=== PATIENT | female | born 1950 | race Caucasian/White ===

== ENCOUNTER → 2017-05-12 | Outpatient (CLI) | payer MEDICARE | END | disposition home or self-care (01) | LOC: CFH 10:46 | PROVIDERS: ATTEND Nurse Practitioner | DX: Z12.31 Encounter for screening mammogram for malignant neoplasm of breast (principal); M81.0 Age-related osteoporosis without current pathological fracture; N95.1 Menopausal and female climacteric states; Z80.3 Family history of malignant neoplasm of breast | CPT/HCPCS: 77080; G0202 ==

== ENCOUNTER → 2018-07-14 | Outpatient (CLI) | payer MEDICARE | END | disposition home or self-care (01) | LOC: CFH 14:09 | PROVIDERS: ATTEND Nurse Practitioner | DX: Z12.31 Encounter for screening mammogram for malignant neoplasm of breast (principal); Z80.3 Family history of malignant neoplasm of breast | CPT/HCPCS: 77067 ==

== ENCOUNTER → 2019-09-30 | Outpatient (CLI) | payer MEDICARE | END | disposition home or self-care (01) | LOC: CFH 09:49 | PROVIDERS: ATTEND Nurse Practitioner | DX: Z12.31 Encounter for screening mammogram for malignant neoplasm of breast (principal); N64.89 Other specified disorders of breast | CPT/HCPCS: 77063; 77067 ==

== ENCOUNTER 2020-04-26 14:30 | Outpatient (CLI) | payer MEDICARE ==
[2020-04-26] MEDS ORDERED: ATOR20TA37 PO (14:59)
[2020-04-26] MEDS ORDERED: LEVO75TA PO (14:59)
[2020-04-26] MEDS ORDERED: MELO15TA24 PO (14:59)
[2020-04-26] MEDS ORDERED: BUTA-177 PO (14:59)
[2020-04-26] MEDS ORDERED: FAMO-79 PO (15:18)
== END 2020-04-26 23:59 | disposition home or self-care (01) ==
LOC: STAR 14:30
PROVIDERS: ATTEND Obstetrics & Gynecology Female Pelvic Medicine and Reconstructive Surgery
DX: Z01.818 Encounter for other preprocedural examination (principal); Z11.59 Encounter for screening for other viral diseases; N93.9 Abnormal uterine and vaginal bleeding, unspecified; N81.10 Cystocele, unspecified; N81.6 Rectocele
CPT/HCPCS: 36415; 87635; 93005

== ENCOUNTER 2020-04-30 06:34 | Day surgery (SDC) | payer MEDICARE ==
[2020-04-26 14:59] VITALS: BP 104/72
[~2020-04-30] VITALS: Ht 165.1 cm; Wt 66.9 kg
[~2020-04-30 06:34] MED LIST: ATOR20TA37 PO; BUPIVACAINE/PF 0.25% ONE; BUTA-177 PO; EPINEPHRINE 1 MG/ML, 1ML ONE; FAMO-79 PO; GENTAMICIN 80 MG/2 ML ONE; LEVO75TA PO; MELO15TA24 PO; VANCOMYCIN 500 MG ONE
[2020-04-30] MEDS ORDERED: LACTATED RINGERS 1,000 ML IV SCH (07:00)
[2020-04-30] MEDS ORDERED: CHLORHEXIDINE 15 ML UDC MM ONE (07:00)
[2020-04-30] MEDS ORDERED: NITR100C6 PO (07:09)
[2020-04-30] MEDS ORDERED: PHENAZOPYRIDINE PO (07:09)
[2020-04-30] MEDS ORDERED: KETOROLAC 30 MG/1 ML IV PRN (07:30)
[2020-04-30] MEDS ORDERED: LABETALOL 5MG/ML, 20ML IV PRN (07:30)
[2020-04-30] MEDS ORDERED: ONDANSETRON 2MG/ML, 2ML IVPush PRN (07:30)
[2020-04-30] MEDS ORDERED: METOCLOPRAMIDE 5 MG/ML, 2ML IVPush PRN (07:30)
[2020-04-30] MEDS ORDERED: LORazepam 2 MG/ML, 1ML IVPush PRN (07:30)
[2020-04-30] MEDS ORDERED: HALOPERIDOL 5 MG/ML IV PRN (07:30)
[2020-04-30] MEDS ORDERED: DIPHENHYDRAMINE 50 MG/ML, 1ML IVPush PRN (07:30)
[2020-04-30] MEDS ORDERED: ACETAMINOPHEN 325 MG TABLET PO PRN (07:30)
[2020-04-30] MEDS ORDERED: EPHEDRINE 50 MG/ML, 1ML IM PRN (07:30)
[2020-04-30] MEDS ORDERED: HYDROcodone/APAP 7.5-325MG/15ML UDC PO PRN (07:30)
[2020-04-30] MEDS ORDERED: METHOCARBAMOL 1,000 MG in DEXTROSE 5% 100 ML IV PRN (07:30)
[2020-04-30] MEDS ORDERED: OXYcodone 5 MG/5 ML ORAL.SOL UDC PO PRN (07:30)
[2020-04-30] MEDS ORDERED: MEPERIDINE/PF 25MG/0.5ML IVPush PRN (07:30)
[2020-04-30] MEDS ORDERED: ALBUTEROL/IPRATROPIUM 2.5MG/0.5MG, 3 ML NPPB PRN (07:30)
[2020-04-30] MEDS ORDERED: FENTANYL PF 100 MCG/2ML IV PRN (07:30)
[2020-04-30] MEDS ORDERED: EPHEDRINE 50 MG/ML, 1ML IVPush PRN (07:30)
[2020-04-30] MEDS ORDERED: MIDAZOLAM 1 MG/ML, 2ML IV PRN (07:30)
[2020-04-30] MEDS ORDERED: DIAZEPAM 5 MG/ML, 2ML IVPush PRN (07:30)
[2020-04-30] MEDS ORDERED: HYDROmorphone 1 MG/ML, 1ML INJ IVPush PRN (07:30)
[2020-04-30] MEDS ORDERED: FENTANYL PF 100 MCG/2ML ONE ×2 (07:57→10:02)
[2020-04-30] MEDS ORDERED: PROPOFOL 10 MG/ML, 20ML ONE (07:57)
[2020-04-30] MEDS ORDERED: MIDAZOLAM 1 MG/ML, 2ML ONE (07:57)
[2020-04-30] MEDS ORDERED: DEXAMETHASONE 4 MG/ML, 1ML ONE (07:57)
[2020-04-30] MEDS ORDERED: GLYCOPYRROLATE 0.2MG/1ML, 5ML ONE (07:57)
[2020-04-30] MEDS ORDERED: LIDOCAINE-MPF 2% ,5ML ONE (07:57)
[2020-04-30] MEDS ORDERED: ROCURONIUM 10MG/ML,5ML ONE (07:57)
[2020-04-30] MEDS ORDERED: CEFAZOLIN 1,000 MG ONE (09:06)
[2020-04-30] MEDS ORDERED: FUROSEMIDE 20 MG/2 ML ONE (09:29)
[2020-04-30] MEDS ORDERED: FLUORESCEIN SODIUM 500 MG/5 ML ONE (09:52)
[2020-04-30] MEDS ORDERED: MEPERIDINE/PF 25MG/ML,1ML ONE (10:02)
[2020-04-30] MEDS ORDERED: OXYcodone 5 MG/5 ML ORAL.SOL UDC ONE (10:03)
[2020-04-30] MEDS ORDERED: FAMOTIDINE 10 MG TAB PO ONE (11:30)
[2020-04-30] MEDS ORDERED: FAMOTIDINE 20 MG TABLET ONE (11:30)
[2020-04-30] MEDS ORDERED: HYDROcodone/APAP 5/325 TABLET ONE (11:48)
[2020-04-30] MEDS ORDERED: HYDROcodone/APAP 5/325 TABLET PO ONE (12:00)
== END 2020-04-30 13:30 | disposition home or self-care (01) ==
LOC: OUT 06:34
PROVIDERS: ATTEND Obstetrics & Gynecology Female Pelvic Medicine and Reconstructive Surgery
DX: N81.89 Other female genital prolapse (principal); N39.46 Mixed incontinence; N81.11 Cystocele, midline; N81.5 Vaginal enterocele; N81.6 Rectocele; R10.2 Pelvic and perineal pain; G47.33 Obstructive sleep apnea (adult) (pediatric); G43.909 Migraine, unspecified, not intractable, without status migrainosus; E03.9 Hypothyroidism, unspecified; M19.90 Unspecified osteoarthritis, unspecified site; G47.00 Insomnia, unspecified; Z79.890 Hormone replacement therapy; Z79.899 Other long term (current) drug therapy; Z90.710 Acquired absence of both cervix and uterus; Z98.890 Other specified postprocedural states
CPT/HCPCS: 57265; 57282; 57288; C1771; J0171; J0690; J1100; J1580; J1885; J2250; J2704; J3370; J3490; J3010; J1940

== ENCOUNTER → 2020-07-03 | Outpatient (CLI) | payer MEDICARE ==
[~2020-07-03] MED LIST changes: -BUPIVACAINE/PF 0.25% ONE; -EPINEPHRINE 1 MG/ML, 1ML ONE; -GENTAMICIN 80 MG/2 ML ONE; +NITR100C6 PO; +PHENAZOPYRIDINE PO; -VANCOMYCIN 500 MG ONE
== END | disposition home or self-care (01) ==
LOC: RAD 14:30
PROVIDERS: ATTEND Nurse Practitioner
DX: K44.9 Diaphragmatic hernia without obstruction or gangrene (principal); K21.9 Gastro-esophageal reflux disease without esophagitis; I51.7 Cardiomegaly
CPT/HCPCS: 74220

== ENCOUNTER 2021-04-01 16:48 | Emergency (ER) | payer MEDICARE ==
[~2021-04-01] VITALS: Ht 165.1 cm; Wt 69.4 kg
[2021-04-01 17:09] VITALS: BP 136/82
[2021-04-01] MEDS ORDERED: LIDOCAINE-MPF 1%, 5ML INFIL ONE (17:30)
--- NOTE | 2021-04-01 20:41 | NUR ---
medical logistics specialist note: Pt to room from lobby.
[2021-04-01] MEDS ORDERED: BACITRACIN ZINC OINT 500U/GM, 0.9 GM ONE ×2 (21:21→21:36)
[2021-04-01] MEDS ORDERED: CEPHALEXIN 500 MG CAPSULE ONE ×2 (21:22→21:48)
[2021-04-01] MEDS ORDERED: CEPHALEXIN 500 MG CAPSULE PO ONE (21:30)
== END 2021-04-01 21:56 | disposition home or self-care (01) ==
LOC: ED 17:18
DX: S62.662B Nondisplaced fracture of distal phalanx of right middle finger, initial encounter for open fracture (principal); W23.1XXA Caught, crushed, jammed, or pinched between stationary objects, initial encounter; Y93.89 Activity, other specified; Y92.009 Unspecified place in unspecified non-institutional (private) residence as the place of occurrence of the external cause; Y99.8 Other external cause status
CPT/HCPCS: 29130; 99283